=== PATIENT | male | born 1945 | race Caucasian/White ===

== ENCOUNTER → 2019-03-27 | Outpatient (CLI) | payer MEDICARE, OTHER ==
--- NOTE | 2019-03-27 12:48 | Diagnostic Imaging Report ---
INDICATION: 69-isai-kduj smoking history, current smoker presents for baseline low-dose CT screening chest. TECHNIQUE: A protocol low dose axial nonenhanced CT of the chest was performed with multiplanar reconstructions. FINDINGS: There is right lower lobe subpleural benign calcified granulomata. No noncalcified, dominant, or suspicious lung mass. No suspect pulmonary nodule. There are some areas of subpleural scarring bilaterally in the upper lobes and superior segments of the lower lobes. No evidence for acute pneumonia. No bronchiectasis. No bullous disease, bleb, or focal air cyst. No findings of pneumonia. No thoracic effusion. There are advanced degenerative changes to the thoracic spine with disc space narrowing, endplate sclerosis, osteophytes, facet arthrosis, and multiple subcortical cysts. No acute bony abnormality is revealed. The thoracic aorta is nonaneurysmal. There are substantial coronary arterial atherosclerotic vascular calcifications, left and right. IMPRESSION: LUNG RADS CATEGORY: 1. 1. There are definitely benign calcified subpleural granulomas with no noncalcified or suspicious mass. 2. Subpleural areas of scarring and early fibrosis are suspected with no acute infiltrate, effusion, failure pattern, or aneurysm. 3. Coronary arterial atherosclerotic vascular calcifications are noted. Dictated by: Dictated on workstation # [id number]
== END ==
LOC: RAD 09:38
PROVIDERS: ATTEND Nurse Practitioner Family
DX: Z12.2 Encounter for screening for malignant neoplasm of respiratory organs (principal); J84.10 Pulmonary fibrosis, unspecified; I25.10 Atherosclerotic heart disease of native coronary artery without angina pectoris; F17.210 Nicotine dependence, cigarettes, uncomplicated

== ENCOUNTER → 2019-07-02 | Outpatient (CLI) | payer MEDICARE, OTHER ==
--- NOTE | 2019-07-02 11:16 | Diagnostic Imaging Report ---
INDICATION: Knee pain. COMPARISON: None. FINDINGS: Three views of the left knee joint demonstrate no acute fracture or dislocation. No focal osseous lesions are seen. Small suprapatellar joint effusion is noted. The surrounding soft tissue structures are unremarkable. There are no radiopaque foreign bodies. Mild tricompartmental osteoarthritic changes are noted and consist of joint space narrowing with osteophyte formation, greatest involving the medial tibiofemoral compartment. Note is also made of chondrocalcinosis of the lateral compartment. IMPRESSION: 1. Small suprapatellar joint effusion, but no radiographic evidence of acute fracture or dislocation of the left knee. 2. Mild tricompartmental osteoarthritis. 3. Lateral compartment chondrocalcinosis. Findings could be on a degenerative basis, but may also be seen with underlying CPPD. Dictated by: Dictated on workstation # [id number]
== END ==
LOC: RAD FS 10:52
PROVIDERS: ATTEND Nurse Practitioner
DX: M25.462 Effusion, left knee (principal); M17.12 Unilateral primary osteoarthritis, left knee; M11.262 Other chondrocalcinosis, left knee
CPT/HCPCS: 73562

== ENCOUNTER → 2019-07-03 | Outpatient (CLI) | payer MEDICARE, OTHER ==
[~2019-07-03] VITALS: Ht 190.5 cm; Wt 95.7 kg
[~2019-07-03] MED LIST: CATHETER FLUSH 10 ML SYR IV PRN; REGADENOSON 0.4 MG/5 ML SYR (LEXISCAN) IV ONE
[2019-07-03 13:17] VITALS: BP 165/82
[2019-07-03 13:20] VITALS: BP 152/78
--- NOTE | 2019-07-03 16:14 | STRESS TEST ---
DATE OF SERVICE: 07/03/2019 LEXISCAN MYOVIEW STRESS TEST REPORT INDICATION: Coronary artery disease. Baseline heart rate is 52. Baseline blood pressure 165/82. Baseline EKG is sinus rhythm with no ischemic changes. In summary, the patient was injected with 9.34 mCi of technetium-99 Myoview and the resting images were obtained. Then, the patient received 0.4 mg of Lexiscan followed by 29.7 mCi of technetium-99 Myoview. Throughout the test, there were no EKG changes. The resting and stress images were reviewed and compared in the short axis, horizontal long axis, and vertical long axis views. Review of the images showed diaphragmatic attenuation with typical male pattern. No significant ischemia or infarction. SSS is 2, SDS 1, TID value 0.97. On the gated images, the left ventricle appeared to be normal size with normal contractility. Calculated ejection fraction 56%. IN CONCLUSION: 1. The patient tolerated Lexiscan well. 2. Diaphragmatic attenuation with typical male pattern with no significant ischemia or infarction on SPECT images. 3. Normal left ventricular size with normal contractility. Calculated ejection fraction 56%. Job ID: [id number] DocumentID: [id number] Dictated Date: 07/03/2019 16:06:11 Magneto Repairer Date: 07/03/2019 16:13:24 Dictated By: KIMMIE HERNANDEZ MD
== END ==
LOC: CARD 09:49
PROVIDERS: ATTEND Internal Medicine Cardiovascular Disease
DX: I51.7 Cardiomegaly (principal); I25.10 Atherosclerotic heart disease of native coronary artery without angina pectoris; I10 Essential (primary) hypertension; E78.2 Mixed hyperlipidemia; Z72.0 Tobacco use
CPT/HCPCS: 78452; 93017; 93306

== ENCOUNTER → 2020-04-08 | Outpatient (CLI) | payer MEDICARE, OTHER ==
--- NOTE | 2020-04-08 14:18 | Diagnostic Imaging Report ---
EXAMINATION: CT Lung Screening. INDICATION: 40 pack-year history of smoking. TECHNIQUE: Noncontrast, low-dose CT imaging performed according to the lung cancer screening protocol. Auto Exposure Controls were utilize during the CT exam to meet ALARA standards for radiation dose reduction. COMPARISON: 03/27/2019. FINDINGS: Evaluation of the lung armstrong demonstrates a small 4 to 5 mm micronodule associated with the lateral margins of the major fissure on the left (image 124, series 2). This is stable compared to 03/27/2019. Additionally, there is a 5 to 6 mm subpleural micronodule within the posterolateral sulcus on the left. A corresponding micronodular density cannot be adequately identified on the prior exam but may be obscured by motion artifact. Otherwise, benign calcified granulomas are noted on the right. There is no focal consolidation, large effusion, or pneumothorax. There is background mild subpleural emphysematous disease within the mid and upper lung armstrong. The cardiomediastinal structures show normal heart size. There is advanced calcified coronary and moderate scattered calcified aortic atherosclerosis. There is no large pericardial effusion. No pathologically enlarged or morphologically abnormal adenopathy is seen within the mediastinum, vitor, or axilla on this noncontrast exam. The osseous structures show age-related degenerative changes. No lytic or blastic bony lesions are seen. The included portions of the upper abdomen are unremarkable as well. IMPRESSION: 1. Left-sided pulmonary micronodules as above. A 6 month followup is recommended to ensure stability. 2. Background mild emphysematous disease. 3. Significant calcified aortic and coronary atherosclerosis. LUNG-RADS CATEGORY:3-S MODIFIER:As above OTHER SIGNIFICANT FINDINGS:As above Dictated by: Dictated on workstation # [id number]
== END ==
LOC: RAD FS 13:03
PROVIDERS: ATTEND Nurse Practitioner Family
DX: Z12.2 Encounter for screening for malignant neoplasm of respiratory organs (principal); J43.9 Emphysema, unspecified; I70.0 Atherosclerosis of aorta; I25.10 Atherosclerotic heart disease of native coronary artery without angina pectoris; M19.90 Unspecified osteoarthritis, unspecified site; R91.8 Other nonspecific abnormal finding of lung field; F17.210 Nicotine dependence, cigarettes, uncomplicated

== ENCOUNTER 2020-04-22 04:04 | Emergency (ER) | payer MEDICARE, OTHER ==
[~2020-04-22] VITALS: Ht 190 cm; Wt 98.0 kg
--- OUTSIDE RECORDS SUMMARY | 2020-04-22 04:11 | XMS REPORT | Continuity of Care Document ---
Author Organization Unknown Address Unknown Phone Unavailable Allergies Active Description Code Type Severity Reaction Onset Reported/Identified Relationship to Patient Clinical Status Yes No Known Drug Allergies [id number] Drug Allergy Unknown N/A 07/03/2019 Medications There is no data. Problems Date Dx Coded Attending Type Code Diagnosis Diagnosed By 03/15/2019 AURELIA AYALA SCREENER PERFUMER Ot Z87.891 PERSONAL HISTORY OF NICOTINE DEPENDENCE 03/18/2019 AURELIA AYALA SCREENER PERFUMER Ot Z87.891 PERSONAL HISTORY OF NICOTINE DEPENDENCE 03/27/2019 AURELIA AYALA SCREENER PERFUMER Ot Z87.891 PERSONAL HISTORY OF NICOTINE DEPENDENCE 03/27/2019 AURELIA AYALA SCREENER PERFUMER Ot Z87.891 PERSONAL HISTORY OF NICOTINE DEPENDENCE 03/27/2019 AURELIA AYALA SCREENER PERFUMER Ot F17.210 NICOTINE DEPENDENCE, CIGARETTES, UNCOMPL 03/27/2019 AURELIA AYALA SCREENER PERFUMER Ot I25.10 ATHSCL HEART DISEASE OF [place] CORONARY 03/27/2019 AURELIA AYALA SCREENER PERFUMER Ot J84.10 PULMONARY FIBROSIS, UNSPECIFIED 03/27/2019 AURELIA AYALA SCREENER PERFUMER Ot Z12.2 ENCNTR SCREEN FOR MALIGNANT NEOPLASM OF 04/18/2019 AURELIA AYALA SCREENER PERFUMER Ot F17.210 NICOTINE DEPENDENCE, CIGARETTES, UNCOMPL 04/18/2019 AURELIA AYALA SCREENER PERFUMER Ot I25.10 ATHSCL HEART DISEASE OF [place] CORONARY 04/18/2019 AURELIA AYALA SCREENER PERFUMER Ot J84.10 PULMONARY FIBROSIS, UNSPECIFIED 04/18/2019 AURELIA AYALA SCREENER PERFUMER Ot Z12.2 ENCNTR SCREEN FOR MALIGNANT NEOPLASM OF 07/05/2019 YANDY LEWIS Ot M11.262 OTHER CHONDROCALCINOSIS, LEFT KNEE 07/05/2019 YANDY LEWIS Ot M17.12 UNILATERAL PRIMARY OSTEOARTHRITIS, LEFT 07/05/2019 YANDY LEWIS Ot M25.462 EFFUSION, LEFT KNEE 07/25/2019 KIMMIE HERNANDEZ MD Ot E78. 2 MIXED HYPERLIPIDEMIA 07/25/2019 KIMMIE HERNANDEZ MD Ot I10 ESSENTIAL (PRIMARY) HYPERTENSION 07/25/2019 KIMMIE HERNANDEZ MD Ot I25. 10 ATHSCL HEART DISEASE OF [place] CORONARY 07/25/2019 KIMMIE HERNANDEZ MD Ot I51. 7 CARDIOMEGALY 07/25/2019 KIMMIE HERNANDEZ MD Ot Z72. 0 TOBACCO USE 07/25/2019 YANDY LEWISP Ot M11.262 OTHER CHONDROCALCINOSIS, LEFT KNEE 07/25/2019 YANDY LEWIS Ot M17.12 UNILATERAL PRIMARY OSTEOARTHRITIS, LEFT 07/25/2019 YANDY LEWIS Ot M25.462 EFFUSION, LEFT KNEE 04/07/2020 TAYLOR IBRAHIMP Ot Z87.89 1 PERSONAL HISTORY OF NICOTINE DEPENDENCE 04/07/2020 TAYLOR IBRAHIMP Ot Z87.89 1 PERSONAL HISTORY OF NICOTINE DEPENDENCE 04/08/2020 TAYLOR IBRAHIMP Ot Z87.89 1 PERSONAL HISTORY OF NICOTINE DEPENDENCE 04/08/2020 TAYLOR IBRAHIMP Ot Z87.89 1 PERSONAL HISTORY OF NICOTINE DEPENDENCE 04/08/2020 TAYLOR IBRAHIMP Ot F17.21 0 NICOTINE DEPENDENCE, CIGARETTES, UNCOMPL 04/08/2020 AURELIA AYALA SCREENER PERFUMER Ot F17.210 NICOTINE DEPENDENCE, CIGARETTES, UNCOMPL 04/08/2020 AURELIA AYALA SCREENER PERFUMER Ot I25.10 ATHSCL HEART DISEASE OF [place] CORONARY 04/08/2020 AURELIA AYALA SCREENER PERFUMER Ot J84.10 PULMONARY FIBROSIS, UNSPECIFIED 04/08/2020 AURELIA AYALA SCREENER PERFUMER Ot Z12.2 ENCNTR SCREEN FOR MALIGNANT NEOPLASM OF 04/08/2020 KIMMIE HERNANDEZ MD Ot E78. 2 MIXED HYPERLIPIDEMIA 04/08/2020 KIMMIE HERNANDEZ MD Ot I10 ESSENTIAL (PRIMARY) HYPERTENSION 04/08/2020 KIMMIE HERNANDEZ MD Ot I25. 10 ATHSCL HEART DISEASE OF [place] CORONARY 04/08/2020 KIMMIE HERNANDEZ MD Ot I51. 7 CARDIOMEGALY 04/08/2020 KIMMIE HERNANDEZ MD Ot Z72. 0 TOBACCO USE 04/08/2020 YANDY LEWIS Ot M11.262 OTHER CHONDROCALCINOSIS, LEFT KNEE 04/08/2020 YANDY LEWIS RUSLAN Ot M17.12 UNILATERAL PRIMARY OSTEOARTHRITIS, LEFT 04/08/2020 YANDY LEWIS RUSLAN Ot M25.462 EFFUSION, LEFT KNEE 04/08/2020 TAYLOR IBRAHIMP Ot F17.21 0 NICOTINE DEPENDENCE, CIGARETTES, UNCOMPL 04/15/2020 TAYLOR IBRAHIMP Ot F17.21 0 NICOTINE DEPENDENCE, CIGARETTES, UNCOMPL 04/15/2020 TAYLOR IBRAHIMP Ot I25.10 ATHSCL HEART DISEASE OF [place] CORONARY 04/15/2020 TAYLOR IBRAHIMP Ot I70.0 ATHEROSCLEROSIS OF [place] 04/15/2020 TAYLOR IBRAHIMP Ot J43.9 EMPHYSEMA, UNSPECIFIED 04/15/2020 TAYLOR IBRAHIMP Ot M19.90 UNSPECIFIED OSTEOARTHRITIS, UNSPECIFIED 04/15/2020 PATRICE TAYLOR REYESP Ot R91.8 OTHER NONSPECIFIC ABNORMAL FINDING OF [place] 04/15/2020 TAYLOR IBRAHIMP Ot Z12.2 ENCNTR SCREEN FOR MALIGNANT NEOPLASM OF Procedures There is no data. Results Test Result Range CMP - 02/28/19 18:00 GLUCOSE 88 mg/dL 65-99 UREA NITROGEN (BUN) 17 mg/dL 7-25 CREATININE 0.80 mg/dL 0.70-1.18 eGFR NON-AFR. PALAUAN 90 mL/min/1.73m2 > OR = 60 eGFR 104 mL/min/1.73m2 > OR = 60 BUN/CREATININE RATIO NOT APPLICABLE (calc) 6-22 SODIUM 134 mmol/L 135-146 POTASSIUM 4.4 mmol/L 3.5-5.3 CHLORIDE 99 mmol/L 98-110 CARBON DIOXIDE 26 mmol/L 20-32 CALCIUM 9.4 mg/dL 8.6-10.3 PROTEIN, TOTAL 6.9 g/dL 6.1-8.1 ALBUMIN 4.6 g/dL 3.6-5.1 GLOBULIN 2.3 g/dL (calc) 1.9-3.7 ALBUMIN/GLOBULIN RATIO 2.0 (calc) 1.0-2. 5 BILIRUBIN, TOTAL 0.6 mg/dL 0.2-1.2 ALKALINE PHOSPHATASE 49 U/L 40-115 AST 15 U/L 10-35 ALT 10 U/L 9-46 VITAMIN D, 25-H - 02/28/19 18:00 VITAMIN D,25-OH,TOTAL,IA 43 ng/mL 30-10 0 PDM - 09 PANEL (PROFILE 1) - 04/17/19 15 :01 Prescribed Drug 1 [place](TM) NRG Creatinine 115.9 mg/dL > or = 20.0 pH 7.00 4.5 - 9.0 Oxidant NEGATIVE mcg/mL <200 Amphetamines NEGATIVE ng/mL <500 medMATCH Amphetamines CONSISTENT NRG Benzodiazepines POSITIVE ng/mL <100 Marijuana Metabolite NEGATIVE ng/mL <20 medMATCH Marijuana Metab CONSISTENT NRG Cocaine Metabolite NEGATIVE ng/mL <150 medMATCH Cocaine Metab CONSISTENT NRG Opiates POSITIVE ng/mL <100 Oxycodone NEGATIVE ng/mL <100 medMATCH Oxycodone CONSISTENT NRG COMMENT NRG Alphahydroxyalprazolam 43 ng/mL <25 medMATCH aOH alprazolam CONSISTENT NRG Alphahydroxymidazolam NEGATIVE ng/mL < 50 medMATCH aOH midazolam CONSISTENT NRG Alphahydroxytriazolam NEGATIVE ng/mL < 50 medMATCH aOH triazolam CONSISTENT NRG Aminoclonazepam NEGATIVE ng/mL <25 medMATCH Aminoclonazepam CONSISTENT NRG Hydroxyethylflurazepam NEGATIVE ng/mL <50 medMATCH OH,Et flurazepam CONSISTENT NR G Lorazepam NEGATIVE ng/mL <50 medMATCH Lorazepam CONSISTENT NRG Nordiazepam NEGATIVE ng/mL <50 medMATCH Nordiazepam CONSISTENT NRG Oxazepam NEGATIVE ng/mL <50 medMATCH Oxazepam CONSISTENT NRG Temazepam NEGATIVE ng/mL <50 medMATCH Temazepam CONSISTENT NRG Codeine NEGATIVE ng/mL <50 medMATCH Codeine CONSISTENT NRG Hydrocodone 215 ng/mL <50 medMATCH Hydrocodone CONSISTENT NRG Hydromorphone 121 ng/mL <50 medMATCH Hydromorphone CONSISTENT NRG Morphine NEGATIVE ng/mL <50 medMATCH Morphine CONSISTENT NRG Norhydrocodone 579 ng/mL <50 medMATCH Norhydrocodone CONSISTENT NRG Prescribed Drug 2 Xanax(TM) NRG Barbiturates NEGATIVE ng/mL <300 medMATCH Barbiturates CONSISTENT NRG Methadone Metabolite NEGATIVE ng/mL <100 medMATCH Methadone Metab CONSISTENT NRG Phencyclidine NEGATIVE ng/mL <25 medMATCH Phencyclidine CONSISTENT NRG VITAMIN D, 25-H - 03/10/20 11:25 VITAMIN D,25-OH,TOTAL,IA 28 ng/mL 30-10 0 Encounters ACCT No. Visit Date/Time Discharge Status Pt. Type Provider Facility Loc./Unit Complaint [id number] 02/15/2020 13:00:00 02/15/2020 23:59: 59 CLS Outpatient DANO PIPER [id number] 03/10/2020 10:40:00 Document Registration [id number] 04/17/2019 14:45:00 Document Registration [id number] 02/27/2019 17:00:00 Document Registration [id number] 04/08/2020 13:03:00 23:59:59 CLS Outpatient TAYLOR IBRAHIM [facility] RAD LUNG SCREENING [id number] 07/03/2019 09:49:00 23:59:59 CLS Outpatient KIMMIE HERNANDEZ MD [facility] CARD CAD,HTN [id number] 07/02/2019 10:52:00 23:59:59 CLS Outpatient YANDY LEWIS [facility] RAD FS KNEE PAIN [id number] 04/23/2019 10:26:00 23:59:59 CLS Preadmit KIMMIE HERNANDEZ MD [facility] CARD CAD,HTN [id number] 03/27/2019 09:38:00 23:59:59 CLS Outpatient AURELIA AYALA APRN [facility] RAD SCREENING
--- OUTSIDE RECORDS SUMMARY | 2020-04-22 04:11 | XMS REPORT ---
Author Author Zana AYALA Organization [facility] Address [address] [place] [address] Care Team Providers Care Special Procedures Tech Name Role Phone AYALA, AURELIA Unavailable PROBLEMS Type Condition ICD9-CM Code UAE58-ZJ Code Onset Dates Condition S tatus SNOMED Code Problem Tobacco use Z72.0 Jan, Active 40446 3000 Problem PTSD (post-traumatic stress disorder) F43.10 Mar, Active 79679680 Problem Inclusion cyst of skin of shoulder L72.0 04 Walter r, 2016 Active 9509529431322006 Problem Atherosclerosis of other arteries I70.8 Active 409799979 Problem Chronic pain syndrome G89.4 Active 633457833 Problem Night terror F51.4 Active 1586326 3 Problem Primary osteoarthritis of both knees M17.0 Active 583301831 Problem Other chronic pain G89.29 Active 8 5787756 Problem Erectile disorder, acquired, generalized, moderate F52.21 Active 477988440 Problem Atrophy of muscle of multiple sites M62.59 Active 55713242 Problem Chronic fatigue R53.82 Active 8422 9001 Problem Primary hypertension I10 Active 00997351 Problem Cigarette smoker F17.210 Active 655 49164 Problem 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 Active 041952939186051 Problem Cigar smoker F17.290 Active 4119458 6 Problem Facial skin lesion L98.9 Sep, Active 61445960 Problem Vitamin D deficiency E55.9 Active 38275040 Problem Anxiety F41.9 Active 14550736 Problem Cigarette nicotine dependence F17.200 Active 219369697 Problem Chronic major depressive disorder, recurrent episode F33.9 Active 27142393 ALLERGIES No Information ENCOUNTERS Encounter Location Date Diagnosis [facility] [address] [facility] [id number] [place] [address] 15 Oct, 2019 Acute bronchitis, unspecified organism J 20.9 and Flu-like symptoms R68.[address] [place] [address] Oct, Shoulder injury, left, initi al encounter S49.92XA and Anxiety F41.9 [facility] [address] [place] [address] Sep, Bilateral impacted cerumen H61.23 ; Prim elizabeth hypertension I10 ; 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 and Vitamin D deficiency E55.9 [facility] [place] [place] [address] Sep, [facility] [place], [place] [address] Sep, PTSD (post-traumatic stress disorder) F4 3.10 and Shoulder injury, left, initial encounter S49.92XA [facility] [place] [address] Aug, Shoulder injury, left, initial encounter S49.92XA [facility] [place] [place] [address] Aug, Anxiety F41.9 [facility] [place] [place] [address] Jul, Shoulder injury, left, initial encounter S49.92XA and PTSD (post-traumatic stress disorder) F43.10 [facility] [place] [place] [address] Jul, Chronic pain syndrome G89.4 [facility] [place] [place] [address] Jun, Chronic pain syndrome G89.4 [facility] [place] [id number] [place] [id number] [place] [address] Jun, [place] [address] [place] [address] Jun, [address] [place] [address] Jun, Cigarette smoker F17.210 [facility] [place] [address] [place] [address] [address] Jun, Anxiety F41.9 [facility] [place] [address] [id number] [place] [address] May, Anxiety F41.9 [facility] [place] [address] [id number] [place] [address] May, [facility] [address] [place] [address] May, Left leg swelling M79.89 [facility] [place] [address] [id number] [place] [address] May, Left leg swelling M79.89 [facility] [place] [address] [id number] [place] [address] May, [facility] [place] [address] [id number] [place] [address] May, Chronic pain syndrome G89.4 [facility] [place] [address] [id number] [place] [address] May, Chronic pain syndrome G89.4 and Primary osteoarthritis of both knees M17.0 [facility] [place] [address] [id number] [place] [address] Apr, Anxiety F41.9 [facility] [place] [address] [id number] [place] [address] Apr, Chronic pain syndrome G89.4 [place] [id number] [place] [address] Apr, Anxiety F41.9 [facility] [id number] [place] [address] Apr, Primary osteoarthritis of both knees M17 .0 [facility] [address] [place] [address] Mar, Chronic pain syndrome G89.4 [facility] [place] [address] [id number] [place] [address] Mar, Chronic pain syndrome G89.4 [facility] [place] [address] [id number] [place] [address] Mar, Left shoulder pain M25.[address] [place] [address] Mar, Insect bite (nonvenomous), right lower l eg, initial encounter S80.861A ; Bitten or stung by nonvenomous insect and other nonvenomous arthropods, initial encounter W57.XXXA and Skin infection L08.[address] [place] [address] Mar, [place] [address] [address] February, [address] [address] February, Chronic pain syndrome G89.4 [place] [address] [address] February, Cigarette nicotine dependence F17.200 ; Abnormal chest x-ray R93.89 and Hyponatremia E87.[address], [place] [address] February, Vitamin D deficiency E55.9 ; Cigarette s moker F17.210 ; Cigar smoker F17.290 ; Hyponatremia E87.1 ; PTSD (post-traumatic stress disorder) F43.10 ; Chronic pain syndrome G89.4 ; Primary osteoarthritis of both knees M17.0 ; Chronic left shoulder pain M25.512 ; Left eye injury S05.92XA and Anxiety F41.[address] [place] [address] Jan, Cigarette smoker F17.[address] [place] [address] Jan, Elevated fasting blood sugar R73.[address] [place] [address] Dec, Elevated fasting blood sugar R73.[address] [address] Dec, Cigarette smoker F17.210 [place] [id number] [facility] [id number] [place] [address] Nov, Cigarette smoker F17.[address] [place] [address] Nov, [address] [place] [address] Nov, Elevated fasting blood sugar R73.[address] [place] [address] Nov, Hyponatremia E87.1 [facility] [address] [facility] [id number] [place] [address] Oct, [address] [place] [address] Oct, Bacterial conjunctivitis of left eye H10 .9 ; Elevated fasting blood sugar R73.01 ; Vitamin D deficiency E55.9 and Chronic pain syndrome G89.[address] [id number] [place] [address] Oct, Elevated fasting blood sugar R73.01 and Vitamin D deficiency E55.9 [address] [place] [address] Oct, Pain in left knee M25.562 ; Other chroni c pain G89.29 ; Atrophy of muscle of multiple sites M62.59 ; Chronic pain syndrome G89.4 ; Chronic fatigue R53.82 ; Pain in right knee M25.561 ; Long-term use of high-risk medication Z79.899 and Screening, lipid Z13.[address] [place] [address] Oct, Chronic pain syndrome G89.4 ; Long-term use of high-risk medication Z79.899 ; Screening, lipid Z13.220 ; Other chronic pain G89.29 ; Pain in right knee M25.561 ; Cigarette smoker F17.210 ; Primary osteoarthritis of both knees M17.0 ; Night terror F51.4 and Erectile disorder, acquired, generalized, moderate F52.21 [facility] [address] [address] Sep, [facility] [address] [address] Sep, [facility] [address] [address] Sep, [facility] [address] [address] Aug, [facility] [address] [address] Jul, [facility] [address] [address] May, [facility] [id number] [place] [address] Nov, IMMUNIZATIONS No Known Immunizations SOCIAL HISTORY Never Assessed REASON FOR VISIT medication refill PLAN OF CARE VITAL SIGNS MEDICATIONS Medication Instructions Dosage Frequency Start Date End Date Duration S tatus Hydrocodone-Acetaminophen 5-325 MG Orally bid prn 1 tablet as neede d Dec, 28 days Active RESULTS No Results PROCEDURES No Known procedures INSTRUCTIONS MEDICATIONS ADMINISTERED No Known Medications MEDICAL (GENERAL) HISTORY Type Description Date Medical History ptsd Medical History back pain Medical History eczema Medical History shoulder pain Medical History erectile dysfunction Medical History facial lesion Surgical History foot surgery Surgical History eye surgery 2004 Surgical History left ring finger repair Hospitalization History foot surgery Hospitalization History eye surgery 2004
--- NOTE | 2020-04-22 04:23 | ED Upper Extremity ---
General Chief Complaint: Upper Extremity Stated Complaint: (L) SHOULDER PAIN Nursing Triage Note: Pt has a hx of ptsd and had a nightmare tonight causing him to roll out of bed onto his left shoulder. Pt presents with shoulder pain. Nursing Sepsis Screen: No Definite Risk Source: patient, RN/MD, RN notes reviewed Exam Limitations: no limitations History of Present Illness Date Seen by Provider: Apr 22, 2020 Time Seen by Provider: 04:15 Initial Comments This patient is a 74-year-old male that presents to the emergency department complaining of left shoulder pain. Patient states that he has a history of PTSD and that he was having a nightmare and he rolled out of bed landing on his left shoulder. Patient states he has a long history of left shoulder pain and multiple injuries in the past. Has quite a bit in pain in the shoulder and takes hydrocodone for the same. Patient states he exacerbated when he fell. Onset: just prior to arrival Pain/Injury Location: left shoulder Method of Injury: fell Allergies and Home Medications Allergies Coded Allergies: No Known Drug Allergies (Unverified , 07/03/19) Patient Home Medication List Home Medication List Reviewed: Yes Review of Systems Constitutional: No no symptoms reported, No see HPI, No chills, No diaphoresis, No dizziness, No fever, No malaise, No weakness, No weight gain, No weight loss, No other EENTM: No see HPI, No no symptoms reported, No ear discharge, No hearing loss, No ear pain, No blurred vision, No double vision, No eye pain, No tearing, No vision loss, No dental problems, No hoarseness, No mouth pain, No mouth swelling, No epistaxis, No nose congestion, No nose pain, No throat pain, No throat swelling, No other Respiratory: No no symptoms reported, No see HPI, No cough, No dyspnea on exertion, No hemoptysis, No orthopnea, No phlegm, No short of breath, No stridor, No wheezing, No other Cardiovascular: No no symptoms reported, No see HPI, No chest pain, No edema, No Hx of Intervention, No palpitations, No syncope, No vascular heart diseas, No other Gastrointestinal: No RUQ, No LUQ, No RLQ, No LLQ, No no symptoms reported, No see HPI, No abdominal pain, No constipation, No diarrhea, No dysphagia, No he matemesis, No heartburn, No jaundice, No loss of appetite, No melena, No nausea, No vomiting, No other Musculoskeletal: No no symptoms reported; see HPI; No back pain, No gout; joint pain; No joint swelling, No muscle pain, No muscle stiffness, No muscle cramps, No muscle twitching, No muscle weakness, No neck pain, No other Skin: No no symptoms reported, No see HPI, No change in color, No change in hair/nails, No dryness, No hx of skin cancer, No lesions, No lumps, No pruritus, No rash, No other Psychiatric/Neurological: Denies No Symptoms Reported, Denies See HPI, Denies Anxiety, Denies Depressed, Denies Emotional Problems, Denies Headache, Denies Numbness, Denies Paresthesia, Denies Pre-Existing Deficit, Denies Seizure, Denies Tingling, Denies Tremors, Denies Weakness, Denies Other All Other Systems Reviewed Negative Unless Noted: Yes Past Bdxmayk-Cjifch-Vrnruw Hx Patient Social History Recent Foreign Travel: No Contact w/Someone Who Travel: No Recent Infectious Disease Expo: No Physical Exam Vital Signs Vital Signs - First Documented 04/22/20 04:16 Temp 36.4 Pulse 69 Resp 16 B/P (MAP) 142/80 (100) Pulse Ox 95 O2 Delivery Room Air Capillary Refill : Less Than 3 Seconds Height, Weight, BMI Height: 6'3.00" Weight: 211lbs. 0.0oz. 95.010351yn; 27.00 BMI Method: General Appearance: WD/WN, no apparent distress Cardiovascular: normal peripheral pulses, regular rate, rhythm, no edema, no gallop, no JVD, no murmur Respiratory: chest non-tender, lungs clear, normal breath sounds, no respiratory distress, no accessory muscle use Gastrointestinal: normal bowel sounds, non tender, soft, no organomegaly, no pulsatile mass, abnormal bowel sounds Shoulder: limited ROM, pain, soft tissue tenderness Skin: normal color, warm/dry Progress/Results/Core Measures Results/Orders My Orders Orders - KATELIN ALLEN MD Shoulder 3 View Left (04/22/20 04:16) Vital Signs/I&O 04/22/20 04:16 Temp 36.4 Pulse 69 Resp 16 B/P (MAP) 142/80 (100) Pulse Ox 95 O2 Delivery Room Air Blood Pressure Mean: 100 Progress Progress Note : Time: 04:34 Progress Note Recent previous left clavicle fracture on x-ray. 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 Do not see a gross fracture could not say that there is not an underlying fracture seen in the humeral head. Patient states his arm is been like this for some time. Patient understands that radiology will read his x-ray later today and might have a concerning fracture there. Patient will be placed in a sling patient will be referred to orthopedics Dr. Scruggs. Patient states understanding patient is continues hydrocodone as instructed follow-up with his primary care physician if he needs any additional medications. We will give the patient's diclofenac. Patient states understanding of follow-up with orthopedics as instructed. Departure Impression Primary Impression: Fall Additional Impression: Chronic left shoulder pain Disposition: HOME, SELF-CARE Condition: Stable Departure-Patient Inst. Decision time for Depature: 04:36 Referrals: [facility] [place] Primary Care Physician AURELIA AYALA APRN (Family) Primary Care Physician JESS SCRUGGS MD Patient Instructions: Shoulder Pain (DC) Add. Discharge Instructions: Patient understands that radiology will read his x-ray later today and might have a concerning fracture there. Patient will be placed in a sling patient will be referred to orthopedics Dr. Scruggs. Patient states understanding patient is continues hydrocodone as instructed follow-up with his primary care physician if he needs any additional medications. We will give the patient's diclofenac. Patient states understanding of follow-up with orthopedics as instructed. Rest ice sling as instructed. All discharge instructions reviewed with patient and/or family. Voiced understanding. Scripts Diclofenac Sodium (Diclofenac Sodium) 75 Mg Tablet. 75 MG PO BID for 10 Days, #20 TAB 0 Refills Prov: KATELIN ALLEN MD 04/22/20 KATELIN ALLEN MD Apr 22, 2020 04:23
[2020-04-22 04:35] VITALS: BP 142/80
[2020-04-22] MEDS ORDERED: DICL75TA2 PO (04:36)
--- NOTE | 2020-04-22 07:54 | Diagnostic Imaging Report ---
INDICATION: Left shoulder pain FINDINGS: 3 views of the left shoulder demonstrates moderate to severe degenerative changes of the glenoid humeral joint. No fracture or dislocation is present. IMPRESSION: There are [id number] degenerative changes of the left glenohumeral joint. Dictated by: Dictated on workstation # [id number]
== END 2020-04-22 04:42 | disposition home or self-care (01) ==
LOC: EDUNIT# 04:04 → ER FS 04:07
DX: M25.512 Pain in left shoulder (principal); G89.29 Other chronic pain; M19.012 Primary osteoarthritis, left shoulder; Z79.891 Long term (current) use of opiate analgesic; Z87.81 Personal history of (healed) traumatic fracture; W06.XXXA Fall from bed, initial encounter
CPT/HCPCS: 73030; 99283; A4565

== ENCOUNTER → 2020-09-07 | Outpatient (CLI) | payer MEDICARE, OTHER ==
[~2020-09-07] MED LIST changes: -CATHETER FLUSH 10 ML SYR IV PRN; +DICL75TA2 PO; -REGADENOSON 0.4 MG/5 ML SYR (LEXISCAN) IV ONE
--- NOTE | 2020-09-07 12:41 | Diagnostic Imaging Report ---
INDICATION: Left shoulder pain, fall. Time of exam 12:07 p.m. Multiple views of the left shoulder were obtained. Severe glenohumeral joint degenerative changes are noted. There is joint space narrowing. There is sclerosis and subchondral cyst formation with marginal osteophyte formation involving the humeral head and glenoid. Acromioclavicular alignment is normal. Acromial humeral space is normal. No definite fracture or dislocation is seen. IMPRESSION: Severe glenohumeral joint degenerative changes. No acute bony abnormality is detected. Dictated by: Dictated on workstation # [id number]
== END ==
LOC: RAD FS 11:55
PROVIDERS: ATTEND Nurse Practitioner
DX: S40.012D Contusion of left shoulder, subsequent encounter (principal); M19.012 Primary osteoarthritis, left shoulder; W19.XXXA Unspecified fall, initial encounter
CPT/HCPCS: 73030